=== PATIENT | male | born 1960 | race Caucasian/White ===

== ENCOUNTER → 2023-07-16 | Outpatient (CLI) | payer BC, SELFPAY ==
--- OUTSIDE RECORDS SUMMARY | 2023-07-16 10:35 | XMS RPT_ITS | CCD ---
Author Name Unknown Address [address] [place] [address] Organization [facility] Care Team Providers Care Driver/Guide Name Role Phone Tico Allen DO Primary Care Provider [phone] Amanda Tobias DO Primary Care Provider [phone] AUSTIN SHEN Attending Unavailable AMANDA TOBIAS Primary Care Unavailable AUSTIN SHEN Admitting Unavailable AUSTIN SHEN Referring Unavailable AMANDA TOBIAS Primary Care Unavailable Amanda Tobias DO Primary Care Provider Amanda Tobias DO Primary Care Provider Monique VILLAGOMEZ, OD, Tahir Simmons Unavailable TAHIR AMAYA II Referring UnavailJAMES Mcclure Attending Unavailable AMANDA TOBIAS Primary Care Unavailable TAHIR AMAYA II Attending UnavailAMANDA Chapa Primary Care Unavailable Medications Current Medications Medication Drug Class(es) Dates Sig (Normalized) Sig (Original) phenylephrine hydrochloride 25 mg/ml ophthalmic solution (1 source) alpha-1 Adrenergic Agonist Start: 05-29-2023 End: 05-30-2023 PHENYLephrine 2.5 % 1 Drop (AK-DILATE, KASSANDRA-SYNEPHRINE) proparacaine hydrochloride 5 mg/ml ophthalmic solution (1 source) Local Anesthetic Start: 05-29-2023 End: 05-30-2023 proparacaine 0.5 % 1 Drop (ALCAINE) tropicamide 10 mg/ml ophthalmic solution (2 sources) Anticholinergic Start: 05-29-2023 End: 05-30-2023 tropicamide 1 % 1 Drop (MYDRIACYL) Problems Active Problems Problem Classification Problem Date Documented Da te Episodic/Chronic Blindness and vision defects (9 sources) Bilateral myopia of eyes; Translations: [Myopia, bilateral] Onset: 05-29-2023 01-16-2023 Episodic Cataract (5 sources) Bilateral senile combined form cataracts of eyes; Translations: [Combined forms of age-related cataract, bilateral] Onset: 05-29-2023 01-16-2023 Chronic Hyperplasia of prostate (5 sources) Benign prostatic hypertrophy without outflow obstruction; Translations: [Benign prostatic hyperplasia without lower urinary tract symptoms] Onset: 02-09-2016 02-09-2016 Chronic Other non-traumatic joint disorders (1 source) Pain in right knee; Translations: [Pain in joint, lower leg] Episodic Other non-traumatic joint disorders (1 source) Pain in right knee; Translations: [Pain in right knee] Episodic Past or Other Problems Problem Classification Problem Date Documented Da te Episodic/Chronic Other ear and sense organ disorders (5 sources) Bilateral tinnitus; Translations: [Tinnitus, bilateral] Onset: 11-04-2013 11-04-2013 Episodic Urinary tract infections (5 sources) Urethral meatitis; Translations: [Other urethritis] Onset: 02-09-2016 02-09-2016 Episodic Results Test Name Value Interpretation Reference Range Facil ity Vital Signs Date Time Vital Sign Value Performing Clinician Faci lit 05-29-2023 13:41-0500 Diastolic blood pressure 74 mm[Hg] James Vivar MD Work Phone: [facility] 05-29-2023 13:41-0500 Heart rate 76 /min James Vivar MD Work Phone: [facility] 05-29-2023 13:41-0500 Systolic blood pressure 120 mm[Hg] James Vivar MD Work Phone: [facility] 04-25-2021 12:55-0400 Body height 177.8 cm Austin Shen CNP Work Phone: [facility] 04-25-2021 12:55-0400 Body mass index (BMI) [Ratio] 19.66 kg/m2 Austin Shen CNP Work Phone: [facility] 04-25-2021 12:55-0400 Body weight 62.14 kg Austin Shen CNP Work Phone: [facility] Encounters Encounter Date Encounter Type Care Provider Facility Start: 05-29-2023 End: 05-29-2023 ambulatory TAHIR AMAYA II Facility:[facility] Start: 05-29-2023 End: 05-29-2023 Patient encounter procedure James Vivar MD Work Phone: Ophthalmology Procedures Date Procedure Procedure Detail Performing Clinician Start: 05-29-2023 End: 05-29-2023 Computerized corneal topography uni/bi James Vivar MD Work Phone: Start: 05-29-2023 IOL BIOMETRY W/ IOL CALC OU (BOTH EYES) James Vivar MD Work Phone: Start: 05-29-2023 Computerized ophthal dustin imaging retina James Vivar MD Work Phone: Start: 01-16-2023 Computerized ophthal dustin imaging retina Tahir Amaya OD Work Phone: Start: 12-04-2021 Ct abdomen & pelvis w/o contrast material [facility] Provider Start: 10-12-2021 Lipid 1996 panel - S marialuisa or Plasma James Vivar MD Work Phone: Start: 06-06-2012 Colonoscopy Valeria hong PA-C Work Phone: Plan of Treatment Date Care Activity Detail Author Start: 10-12-2026 Lipid 1996 panel - S marialuisa or Plasma Lipid Screening [facility] Start: 03-01-2023 Influenza vaccination INFLUENZA (#1) [facility] Start: 07-01-2022 DEPRESSION ASSESSMENT DEPRESSION ASS ESSMENT [facility] Start: 06-06-2022 Colonoscopy COLONOSCOPY [facility] Start: 06-06-2022 COLORECTAL CANCER SCREENING COLORECTAL CANCER SCREENING [facility] Start: 09-24-2021 COVID-19 VACCINE (4 - Booster for Pfizer series) COVID-19 VACCINE (4 - Booster for Pfizer series) [facility] Start: 03-01-2021 Influenza vaccination [facility] Start: 2019 RSV Vaccine (1 - 1-d ose 60+ series) RSV Vaccine (1 - 1-dose 60+ series) [facility] Start: 04-29-2017 LIPID SCREEN LIPID SCREEN [facility] Start: 04-29-2017 PROSTATE CANCER SCRE ENING DISCUSSION PROSTATE CANCER SCREENING DISCUSSION [facility] Start: 04-29-2015 DIABETES SCREEN DIABETES SCREEN [facility] Start: 04-29-2015 Diabetes Screening Diabetes Screenin g [facility] Start: 2009 Administration of he rpes zoster vaccine Zoster Vaccines (1 of 2) [facility] Start: 2009 Screening for malign ant neoplasm of colon [facility] Start: 2009 SHINGRIX VACCINE (1 of 2) SHINGRIX V ACCINE (1 of 2) [facility] Start: 2004 COLOGUARD (FIT-DNA) COLOGUARD (FIT-D NA) [facility] Start: [address] COLONOGRAPHY [facility] Start: 2004 FECAL OCCULT BLOOD FECAL OCCULT BLOO D [facility] Start: 2004 SIGMOIDOSCOPY SIGMOIDOSCOPY [facility] Start: 1978 Urine microalbumin profile [facility] Start: 1977 HEPATITIS C SCREENING HEPATITIS C SC [facility] Start: 1977 Hepatitis C screening Hepatitis C Sc [facility] Start: 1977 HIV SCREENING HIV SCREENING [facility] Start: 1974 HIV screening HIV Screening [facility] Start: 1971 Adult depression scr eening assessment [facility] Start: 1971 COVID-19 VACCINE (1) COVID-19 VACCIN E (1) [facility] Start: 1962 History and physical examination, annual for health maintenance Wellness Visit [facility] Start: 1959 Prostate specific an tigen measurement PSA Level [facility] Start: 1959 Tetanus vaccination Tetanus: Every 1 0yrs [facility] End: 05-13-2022 Radiologic exam knee complete 4/more views XR KNEE GENERAL 4V AP BOTH/PA BOTH/LAT/MERC RT Radiology Routine Acute pain of right knee 1 Occurrences starting 04/13/2021 until 05/13/2022 [facility] Immunizations Immunization Date Immunization Notes Care Provider Gabby lund 04-18-2016 influenza, seasonal, injectable Valeria Boothe PA-C Work Phone: [facility] 04-15-2013 influenza virus vaccine, unspecified formulation Valeria Boothe PA-C Work Phone: [facility] Work Phone: Payers Date Payer Category Payer Unknown [id number] 2019 Unknown [id number] [address] PPO [id number] 2019-Present [phone] [address] [place] [address] PPO [id number] 1959 Unknown [id number] 1960 Unknown [id number] Social History Date Type Detail Facility Start: 04-29-2012 End: 02-09-2016 Tobacco smoking status NHIS Never smoker [facility] Start: 02-09-2016 End: 05-29-2023 Alcohol intake Current non-drinker of alcohol (finding) [facility] Start: 02-09-2016 End: 01-16-2023 Alcohol intake [facility] Start: 1960 Sex Assigned At Not on file [facility] Exposure to SARS-CoV -2 (event) Unable to assess [facility] Start: 04-25-2021 Tobacco use and exposure Smoke less tobacco non-user [facility] Start: 04-28-2021 Alcohol intake Ex-drinker (finding) [facility] Start: 11-06-2021 End: 11-16-2021 Exposure to SARS-CoV-2 (event) Not sure [facility] Start: 01-16-2023 Gender identity Not on file [facility] Clinical Notes 04-28-2021 to 05-29-2023 James Vivar MD - 05/29/2023 2:26 PM ESTPatient Tahir Jacobson II, OD - 01/16/2023 11:10 AM EDTKibaljeet Piedra, RT(R) - 12/04/2021 2:20 PM EDT Note Date & Type Note Facility 05-29-2023 Note HNO ID: [id number] Author: James Vivar MD Service: ? Author Type: Physician Type: Progress Notes Filed: 05/29/2023 2:32 PM Note Text: ASSESSMENT/PLAN: 1. Combined form of age-related cataract, right eye - ICD9: 366.19, ICD10: H25.811 (primary diagnosis) 2. Regular astigmatism of right eye - ICD9: 367.21, ICD10: H52.221 3. Combined form of age-related cataract, left eye - ICD9: 366.19, ICD10: H25.812 4. Regular astigmatism of left eye - ICD9: 367.21, ICD10: H52.222 Blood pressure 120/74, pulse 76. Begin: Systane Complete Artificial Tears - Use 1 Drop into both eyes three times a day. Reviewed Dr. Tahir Amaya's examination and notes today Recommended patient have refraction with Dr. Amaya Follow up in 6 months/sooner if needed 5. Myopia, bilateral - ICD9: 367.1, ICD10: H52.13 Monitor James Vivar MD I have confirmed and edited as necessary the relevant ophthalmic history, review of systems, surgical history, and ophthalmological examination findings as obtained by the ophthalmic technical staff. I have seen and examined Jethro Tovar. I have discussed the examination findings, diagnosis, and treatment options with Jethro Tovar and/or his family. I have also reviewed and agree with the assessment and plan as stated above and agree with all its relevant components. I gave the patient the opportunity to ask questions about the findings, diagnosis, and treatment options. [facility] 05-29-2023 History of Present illness Narrative ASSESSMENT/PLAN: 1. Combined form of age-related cataract, right eye - ICD9: 366.19, ICD10: H25.811 (primary diagnosis) 2. Regular astigmatism of right eye - ICD9: 367.21, ICD10: H52.221 3. Combined form of age-related cataract, left eye - ICD9: 366.19, ICD10: H25.812 4. Regular astigmatism of left eye - ICD9: 367.21, ICD10: H52.222 Blood pressure 120/74, pulse 76. Begin: Systane Complete Artificial Tears - Use 1 Drop into both eyes three times a day. Reviewed Dr. Tahir Amaya's examination and notes today Recommended patient have refraction with Dr. Amaya Follow up in 6 months/sooner if needed 5. Myopia, bilateral - ICD9: 367.1, ICD10: H52.13 Monitor James Vivar MD I have confirmed and edited as necessary the relevant ophthalmic history, review of systems, surgical history, and ophthalmological examination findings as obtained by the ophthalmic technical staff. I have seen and examined Jethro Tovar. I have discussed the examination findings, diagnosis, and treatment options with Jethro Tovar and/or his family. I have also reviewed and agree with the assessment and plan as stated above and agree with all its relevant components. I gave the patient the opportunity to ask questions about the findings, diagnosis, and treatment options. documented in this encounter [facility] 01-16-2023 Note HNO ID: [id number] Author: Tahir Amaya II, OD Service: ? Author Type: PROGRAM ADMINISTRATOR Type: Progress Notes Filed: 01/16/2023 1:21 PM Note Text: Assessment and Plan H25.813 Combined form of age-related cataract, both eyes (primary encounter diagnosis) Comment: Will try glasses update first to see if improves visual performance adequately. If not will seek cataract consult. H52.13 Myopia, bilateral H52.223 Regular astigmatism, bilateral H52.4 Presbyopia Comment: Update glasses power. I have confirmed and edited as necessary the relevant ophthalmic history, ROS, and the neuro exam findings as obtained by others. I have seen and examined Jethro Tovar. I have discussed the case and the management of this patient's care with the Resident/Fellow, if applicable. I also have reviewed and agree with the assessment and plan as stated above and agree with all of its relevant components. Tahir Amaya II, OD [facility] 01-16-2023 Instructions Tahir Amaya II, OD - 01/16/2023 11:16 AM EDT Assessment and Plan H25.813 Combined form of age-related cataract, both eyes (primary encounter diagnosis) Comment: Will try glasses update first to see if improves visual performance adequately. If not will seek cataract consult. H52.13 Myopia, bilateral H52.223 Regular astigmatism, bilateral H52.4 Presbyopia Comment: Update glasses power. I have confirmed and edited as necessary the relevant ophthalmic history, ROS, and the neuro exam findings as obtained by others. I have seen and examined Jethro Tovar. I have discussed the case and the management of this patient's care with the Resident/Fellow, if applicable. I also have reviewed and agree with the assessment and plan as stated above and agree with all of its relevant components. Tahir Amaya II, OD documented in this encounter [facility] 01-16-2023 History of Present illness Narrative Assessment and Plan H25.813 Combined form of age-related cataract, both eyes (primary encounter diagnosis) Comment: Will try glasses update first to see if improves visual performance adequately. If not will seek cataract consult. H52.13 Myopia, bilateral H52.223 Regular astigmatism, bilateral H52.4 Presbyopia Comment: Update glasses power. I have confirmed and edited as necessary the relevant ophthalmic history, ROS, and the neuro exam findings as obtained by others. I have seen and examined Jethro Tovar. I have discussed the case and the management of this patient's care with the Resident/Fellow, if applicable. I also have reviewed and agree with the assessment and plan as stated above and agree with all of its relevant components. Tahir Amaya II, OD documented in this encounter [facility] 12-04-2021 History of Present illness Narrative Radiology Service Progress Note PATIENT NAME: Jethro Tovar DATE OF SERVICE: December 04, 2021 TIME: 3:38 PM PATIENT IDENTITY VERIFICATION COMPLETED USING TWO (2) IDENTIFIERS: Name and Date of confirmed by patient verbally. FALL SCREENING: Has the patient had 2 falls in the last year or 1 fall with injury or currently using an Ambulatory Assistive Device (Walker, Cane, Wheelchair, Crutches, etc.)? No PATIENT GENDER DATA: Male PATIENT RELEVANT IMPLANT DATA REVIEWED: Not Applicable RADIOLOGY DEPARTMENT: CT; Exam(s) Completed: Abdomen/Pelvis PERIPHERAL IV DATA: Not applicable SIGNED BY: RT Jerry(R) December 04, 2021 3:38 PM documented in this encounter [facility] 04-28-2021 History of Present illness Narrative Jethro Tovar 1960 CC: 60 y.o. is a he with right knee pain. Chief Complaint Patient presents with Right Knee - Pain . HPI: Knee Pain: Patient presents to the office today with complaints of right knee pain. He reports that approximately 1 month ago he had increased pain in the knee hip and ankle. He reports that the majority of the pain now is in the knee and occasionally in the hip area more in the groin. He does also report that the pain is improving in the hip and the knee and has resolved in the ankle. He denies any specific injury to the right knee. He reports pain in the posterior aspect of the knee with a feeling of increased pressure. He feels as though weightbearing is worse more so when he has to go down stairs. He also notes that any type of a twisting motion of that knee is also painful. He denies any instability of the knee. He is fortunate enough to have a daughter who is an ultimate hoops trainer and was able to help him with some home therapy exercises. He does report that he believes this did in fact help. He did also start taking some anti-inflammatories just recently and feels as though that has provided him with decreased pain. The patient does report that when he was young, in his teenage years, he had trauma to the right patella but he does not feel as though that is the root cause of his pain today. PMH: No Known Allergies No current outpatient medications on file. No past medical history on file. No past surgical history on file. Social History Socioeconomic History Marital status: Spouse name: Not on file Number of children: Not on file Years of education: Not on file Highest education level: Not on file Occupational History Not on file Tobacco Use Smoking status: Never Smoker Smokeless tobacco: Never Used Substance and Sexual Activity Alcohol use: Not Currently Drug use: Not Currently Sexual activity: Not on file Other Topics Concern Not on file Social History Narrative Not on file Social Determinants of Health Financial Resource Strain: Difficulty of Paying Living Expenses: Not on file Food Insecurity: Worried About Running Out of Food in the Last Year: Not on file Ran Out of Food in the Last Year: Not on file Transportation Needs: Lack of Transportation (Medical): Not on file Lack of Transportation (Non-Medical): Not on file Physical Activity: Days of Exercise per Week: Not on file Minutes of Exercise per Session: Not on file Stress: Feeling of Stress : Not on file Social Connections: Frequency of Communication with Friends and Family: Not on file Frequency of Social Gatherings with Friends and Family: Not on file Attends Christianity Services: Not on file Active Member of Clubs or Organizations: Not on file Attends Club or Organization Meetings: Not on file Marital Status: Not on file Housing Stability: Unable to Pay for Housing in the Last Year: Not on file Number of Places Lived in the Last Year: Not on file Unstable Housing in the Last Year: Not on file The patient's past medical history, surgical history, social history, family history, medications and allergies were reviewed with the patient today and are available in the chart for further review. ROS: Review of Systems Constitutional: Negative for activity change and fatigue. HENT: Negative for congestion, hearing loss and trouble swallowing. Eyes: Negative for visual disturbance. Respiratory: Negative for chest tightness and shortness of breath. Cardiovascular: Negative for chest pain and palpitations. Gastrointestinal: Negative for abdominal pain, diarrhea, nausea and vomiting. Endocrine: Negative for polydipsia, polyphagia and polyuria. Genitourinary: Negative for decreased urine volume, difficulty urinating and hematuria. Musculoskeletal: Positive for arthralgias. Negative for joint swelling and myalgias. Skin: Negative for color change, rash and wound. Allergic/Immunologic: Negative for immunocompromised state. Neurological: Negative for dizziness, weakness, light-headedness and numbness. Hematological: Does not bruise/bleed easily. Psychiatric/Behavioral: Negative for confusion and sleep disturbance. The patient is not nervous/anxious. PE: Physical Exam Constitutional: Appearance: He is well-developed. HENT: Head: Normocephalic. Eyes: Pupils: Pupils are equal, round, and reactive to light. Cardiovascular: Rate and Rhythm: Normal rate and regular rhythm. Pulmonary: Effort: Pulmonary effort is normal. Breath sounds: Normal breath sounds. Abdominal: General: Bowel sounds are normal. Palpations: Abdomen is soft. Musculoskeletal: General: Tenderness present. Normal range of motion. Cervical back: Normal range of motion and neck supple. Right knee: Effusion present. Instability Tests: Medial Aleida test negative and lateral Aleida test negative. Comments: Posterior knee tenderness Skin: General: Skin is warm and dry. Neurological: Mental Status: He is alert and oriented to person, place, and time. ORTHO: Right Knee Exam Muscle Strength The patient has normal right knee strength. Tenderness The patient is experiencing tenderness in the patellar tendon. Range of Motion Extension: 0 Flexion: 140 Tests Aleida: Medial - negative Lateral - negative Varus: negative Valgus: negative Moira: Anterior - negative Drawer: Anterior - negative Posterior - negative Other Erythema: absent Scars: absent Sensation: normal Pulse: present Swelling: none Effusion: effusion present Imaging: Right knee:Cortical irregularity along the inferior pole of the patella. This is a nonspecific finding, less likely to be a fracture. Mild prepatellar soft tissue thickening is suggestive of prepatellar bursitis. Small suprapatellar joint effusion. Assessment/Plan: After examination and reviewing of the patient x-ray images we discussed treatment options for his right knee. At this time I do not feel as though he needs a cortisone injection and he does agree with me. He continues to have improvement with his symptoms. I did urge him to continue with the home exercise therapy program as well as take the OTC pain medications when he does need them. We also discussed the option of a steroid injection in the future if the symptoms return and worsen. He does verbalize understanding and is in agreement with this treatment plan. I am more than happy to see him back as needed. Diagnosis: Problem List Items Addressed This Visit None Follow Up: No follow-ups on file. Austin Shen, MOISTURE METER READER documented in this encounter [facility] Diagnosis Right knee pain, unspecified chronicity- [facility] Diagnosis Combined form of age-related cataract, both eyes- Primary Myopia, bilateral Myopia Regular astigmatism, bilateral Presbyopia [facility]* Diagnosis Combined form of age-related cataract, right eye- Primary Regular astigmatism of right eye Regular astigmatism Combined form of age-related cataract, left eye Regular astigmatism of left eye Regular astigmatism Myopia, bilateral Myopia [facility] Diagnostic Procedure Only (Routine) Status Reason Specialty Diagnoses / Procedures Referred By Contact Referred To Contact Pending Review Auto-Generated Referral XR IMAGING Diagnoses Acute pain of right knee Procedures XR KNEE GENERAL 4V AP BOTH/PA BOTH/LAT/MERC RT KNEE AP-WGT/LAT/MERCH Valeria Clay PA-C [address] [place] [address] [facility]* Diagnostic Procedure Only (Routine) - Closed Specialty Diagnoses / Procedures Referred By Alfredito gao Referred To Contact Radiology / RADIO CT SCAN [facility] Diagnoses CT Abd/Pel WO CONTRAST Other microscopic hematuria R31.[address] ABD & PELVIS W/O CONTRAST CT WO ABD1 400 Amanda Tobias DO [address] [place] [address] Scan [facility] [address] [place] [address] Referral ID Status Reason Start Date Expiration Date Visits Re quested Visits Authorized [id number] Closed 11/06/2021 12/05/2021 2 2 [facility] Advance Directives No Advanced Directives Records FoundDocuments on File Type Date Recorded Patient Produce Manager Expl anation Advance Directives and Living Will Summary Purpose Family History No Family History Records FoundNo Family History Records FoundNo Family History Records FoundNo Family History Records Found Medications Administered Section Active Administered Medications - up to 3 most recent administrations Medication Order MAR Action Action Date Dose Rate Site PHENYLephrine 2.5 % 1 Drop (AK-DILATE, KASSANDRA-SYNEPHRINE) 1 Drop, BOTH EYES, DIRECTED, Starting on Sat05/29/23 at 1330, Until Chanelle 05/30/23 at 0129, Administer for dilation PROTECT FROM LIGHT Given 05/29/2023 1:30 PM EST 1 Drop proparacaine 0.5 % 1 Drop (ALCAINE) 1 Drop, BOTH EYES, DIRECTED, Starting on Sat05/29/23 at 1330, Until Chanelle 05/30/23 at 0129, Administer for pneumo tonometry, tonopen tonometry, or pachymetry. In the event of a proparacaine shortage, administer tetracaine 0.5% ophthalmic drops 1 drop in the left eye as directed for pneumo tonometry, tonopen tonometry, or pachymetry Given 05/29/2023 1:30 PM EST 1 Drop tropicamide 1 % 1 Drop (MYDRIACYL) 1 Drop, BOTH EYES, DIRECTED, Starting on Sat05/29/23 at 1330, Until Chanelle 05/30/23 at 0129, Administer for dilation Given 05/29/2023 1:30 PM EST 1 Drop Additional Source Comments Source Comments (unrecognize d section and content) In the event this informatio n is protected by the Federal Confidentiality of Alcohol and Drug Abuse Patient Records regulations: The Federal rules restrict any use of the information to criminally investigate or prosecute any alcohol or drug abuse patient.[facility] the event this information is protected by the Federal Confidentiality of Alcohol and Drug Abuse Patient Records regulations: The Federal rules restrict any use of the information to criminally investigate or prosecute any alcohol or drug abuse patient.[facility] the event this information is protected by the Federal Confidentiality of Alcohol and Drug Abuse Patient Records regulations: The Federal rules restrict any use of the information to criminally investigate or prosecute any alcohol or drug abuse patient.[facility] the event this information is protected by the Federal Confidentiality of Alcohol and Drug Abuse Patient Records regulations: The Federal rules restrict any use of the information to criminally investigate or prosecute any alcohol or drug abuse patient.[facility] Center[facility] the event this information is protected by the Federal Confidentiality of Alcohol and Drug Abuse Patient Records regulations: The Federal rules restrict any use of the information to criminally investigate or prosecute any alcohol or drug abuse patient.[facility] Reason for Visit (unrecogniz ed section and content) Reason Comments Radiology CT Specialty Diagnoses / Procedures Referred By Alfredito t Referred To Contact Radiology / RADIO CT SCAN [facility] Diagnoses CT Abd/Pel WO CONTRAST Other microscopic hematuria R31.[address] ABD & PELVIS W/O CONTRAST CT WO ABD1 400 Amanda Tobias DO [address] [place] [address] [facility] [address] [place] [address] Referral ID Status Reason Start Date Expiration Date Visits Re quested Visits Authorized [id number] Closed 11/06/2021 12/05/2021 2 2 Reason Comments Yearly Exam Reason Comments Cataract Evaluation Blurred Vision Both Eyes Right eye worse than left eye Care Teams (unrecognized sec tion and content) Driver/Guide Relationship Specialty Start Date End Date Amanda Tobias DO [address] [place] [id number] PCP - General Family Practice 11/02/21 Driver/Guide Relationship Specialty Start Date End Date Amanda Tobias DO [address] [place]AN Mcintosh [place] MD [id number] PCP - General Family Practice 11/02/21 Driver/Guide Relationship Specialty Start Date End Date Amanda Tobias DO [address] [place] Mcintosh [place] MD [id number] PCP - General Family Medicine 11/02/21 Driver/Guide Relationship Specialty Start Date End Date Amanda Tobias DO [address] [place]na [place] [id number] PCP - General Family Medicine 11/02/21 Tahir Amaya II, OD [address] [place] [address] Optometry 05/29/23 (unrecognized sect ion and content) No Status Records FoundNo Status Records FoundNo Status Records FoundNo Status Records Found INFORMATION SOURCE (unrecogn ized section and content) DATE CREATED AUTHOR AUTHOR'S ORGANIZ ATION 10/13/2021 [facility] DATE CREATED AUTHOR AUTHOR'S ORGANIZ ATION 10/15/2021 [facility] DATE CREATED AUTHOR AUTHOR'S ORGANIZ ATION 06/01/2023 [facility] FOR RECORDS PERTAINING TO PATIENTS WHO ARE OR HAVE BEEN ENROLLED IN A CHEMICAL DEPENDENCY/SUBSTANCEABUSE PROGRAM, SOME INFORMATION MAY BE OMITTED. This clinical summary was aggregated from multiple sources. Caution should be exercised in using it in the provision of clinical care. This summary normalizes information from multiple sources, and as a consequence, information in this document may materially change the coding, format and clinical context of patient data. In addition, data may be omitted in some cases. CLINICAL DECISIONS SHOULD BE BASED ON THE PRIMARY CLINICAL RECORDS. [employer] provides no warranty or guarantee of the accuracy or completeness of information in this document.
[2023-07-16 12:23] LABS: Absolute Lymphocyte Count 1.17 X10^3/uL (0.83-4.51); Absolute Neutrophil Count 1.7 X10^3/uL (2.0-7.7); Basophil# 0.01 X10^3/uL; Basophil% 0.3 % (0-1); Eosinophil# 0.05 X10^3/uL; Eosinophils% 1.5 % (0-5); Hematocrit 43.4 % (40-54); Hemoglobin 14.3 g/dL (13.0-16.5); Lymphocyte # 1.17 X10^3/ul (0.83-4.51); Lymphocyte % 36.2 % (19-41); Mean Corp Hgb Conc 32.9 g/dL (32-36); Mean Corpuscular Hgb 32.2 pg (27.0-32.0); Mean Corpuscular Volume 97.7 fL (80-94); Mean Platelet Vol. 9.1 fl (6.2-12.0); Monocyte# 0.33 X10^3/uL; Monocyte% 10.2 % (0-10); NRBC Flagged by Analyzer 0 % (0-5); Neutrophil # 1.67 X10^3/uL (2.7-7.7); Neutrophil % 51.8 % (47-70); Platelet Count 182 K/mm3 (150-450); RBC Distribution Width CV 13.5 % (11.6-14.6); RBC Distribution Width SD 48.9 fl (35.1-43.9); Red Blood Count 4.44 M/mm3 (4.6-6.2); White Blood Count 3.2 K/mm3 (4.4-11.0)
[2023-07-16 12:30] LABS: ALB/GLOB Ratio 0.8 RATIO (0.9-2.4); AST(SGOT) 21 U/L (15-37); Alanine Aminotransfer ALT/SGPT 32 U/L (16-61); Albumin, Serum 3.7 g/dL (3.2-5.0); Alkaline Phosphatase 75 U/L (45-117); Anion Gap 2 (5-15); BUN 15 mg/dL (7-18); BUN/Creat Ratio 14.7 RATIO (10-20); Calcium,Total 9.1 mg/dL (8.5-10.1); Chloride 105 mmol/L (98-107); Cholesterol 153 mg/dL (200); Creatinine, Serum 1.02 mg/dL (0.70-1.30); EST Glomerular Filtration Rate 78 mL/min (>60); Est Glom Filt Rate - Afr Amer 95 mL/min (>60); Globulin 4.6 g/dL (2.2-4.2); Glucose 93 mg/dL (74-106); High Density Lipoprotein 55 mg/dL; PSA,Total - Annual Screen 2.52 ng/mL (0.00-4.00); Protein, Total 8.3 g/dL (6.4-8.2); Sodium Level 140 mmol/L (136-145); Triglycerides 77 mg/dL; Very Low Density Lipoprotein 15 mg/dL (5-40)
[2023-07-16 12:32] LABS: Color, Urine Yellow (Yellow); Glucose, Dipstick Normal (Normal); Ketone-Dipstick Negative (Negative); Leukocyte Esterase-Dipstick Negative /ul (Negative); Nitrite-Dipstick Negative (Negative); Occult Blood-Urine Negative /ul (Negative); Protein-Dipstick Negative (Negative); Specific Gravity, Urine 1.005 (1.002-1.030); Urine Bilirubin Dipstick Negative (Negative); Urine Clarity Sl. Cloudy (Clear); Urine Urobilinogen Normal (Normal)
[2023-07-16 12:33] LABS: Hemoglobin A1c 5.4 % (3.8-5.6)
[2023-07-22 14:08] LABS: Immunoglobulin A 49 mg/dL (61-437); Immunoglobulin G 2763 mg/dL (603-1613); Immunoglobulin M 47 mg/dL (20-172); PROEL- A/G Ratio 0.9 (0.7-1.7); PROEL- Albumin 3.6 g/dL (2.9-4.4); PROEL- Alpha-1 Globulin 0.2 g/dL (0.0-0.4); PROEL- Alpha-2 Globulin 0.6 g/dL (0.4-1.0); PROEL- Beta Globulin 0.9 g/dL (0.7-1.3); PROEL- Gamma Globulin 2.4 g/dL (0.4-1.8); PROEL- Globulin, Total 4.2 g/dL (2.2-3.9); PROEL- TOTAL PROTEIN 7.8 g/dL (6.0-8.5); PROEL-M-Spike 2.2 g/dL (Not Observed)
== END | disposition home or self-care (01) ==
LOC: BFHLAB 10:00
PROVIDERS: PCP Family Medicine; Visit Provider Family Medicine
DX: Z00.00 Encounter for general adult medical examination without abnormal findings (principal); Z12.5 Encounter for screening for malignant neoplasm of prostate; R73.01 Impaired fasting glucose; R77.1 Abnormality of globulin
CPT/HCPCS: 36415; 80053; 80061; 81002; 82784; 83036; 84153; 84165; 84166; 85025; 86334; G0103

== ENCOUNTER → 2024-07-27 | Outpatient (CLI) | payer BC, SELFPAY | END | disposition home or self-care (01) | LOC: LABSPEC 12:42 | PROVIDERS: PCP Family Medicine; Referring Provider Internal Medicine Hematology & Oncology; Visit Provider Internal Medicine Hematology & Oncology | DX: C90.00 Multiple myeloma not having achieved remission (principal) | CPT/HCPCS: 86850; 86900; 86901 ==